=== PATIENT | female | born 1985 | race Caucasian/White ===

== ENCOUNTER 2017-06-07 08:35 | Emergency (ER) | payer MEDICAID ==
[2017-06-07 08:43] VITALS: BP 122/78
[2017-06-07] MEDS ORDERED: predniSONE 20 MG Tab PO ONE (09:04)
[2017-06-07] MEDS ORDERED: Loratadine 10 MG Tab PO ONE (09:04)
--- NOTE | 2017-06-07 09:08 | EDM.PDOC ---
ED HPI GENERAL MEDICAL PROBLEM - General Chief Complaint: Allergic Reaction Stated Complaint: REACTION TO MEDICATION Time Seen by Provider: 06/07/17 08:44 Source of Information: Reports: Patient, RN Notes Reviewed - History of Present Illness INITIAL COMMENTS - FREE TEXT/NARRATIVE: 31-year-old female comes in with facial and neck rash, rash left hand and infected-looking lesion right hand. has had the right hand redness and swelling for awhile but worsening the last 2 or 3 days. facial and neck rash just started a day or 2 ago. no fever or chills. no drainage from hand. 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: Psychiatric History: Reports: Anxiety - Infectious Disease History Infectious Disease History: Reports: MRSA - Past Surgical History GI Surgical History: Reports: Other (See Below) Musculoskeletal Surgical History: Reports: Other (See Below) Social & Family History - Family History Family Medical History: Noncontributory Dermatologic: Reports: Other (See Below) Other Dermatologic Family History: Leisions - Tobacco Use Smoking Status *Q: Never Smoker Years of Tobacco use: 1 Packs/Tins Daily: 0.1 - Caffeine Use Caffeine Use: Reports: Coffee - Recreational Drug Use Recreational Drug Use: No Drug Use in Last 12 Months: Yes Recreational Drug Type: Reports: Heroin Recreational Drug Use Frequency: Daily Recreational Drug Last Use: 02/06/16 ED ROS ALLERGIC REACTION - Review of Systems Review Of Systems: See Below Constitutional: Denies: Fever, Chills HEENT: Denies: Throat Pain Respiratory: Reports: No Symptoms Cardiovascular: Denies: Chest Pain GI/Abdominal: Denies: Abdominal Pain, Nausea, Vomiting Musculoskeletal: Denies: Joint Pain Skin: Reports: Rash, Erythema (dorsum of R hand) Neurological: Reports: No Symptoms ED EXAM GENERAL NO PERIP PULSE - Physical Exam Exam: See Below General Appearance: Alert, No Apparent Distress Eye Exam: Bilateral Eye: PERRL Throat/Mouth: Normal Inspection, Normal Oropharynx Head: No: Facial Swelling Neck: Supple, Full Range of Motion Respiratory/Chest: No Respiratory Distress, Lungs Clear, Normal Breath Sounds Cardiovascular: Regular Rate, Rhythm Back Exam: No: CVA Tenderness (L), CVA Tenderness (R) Extremities: Redness (dorsum of R hand, localized swelling, not fluctuant, no drainage). No: Joint Swelling Neurological: Alert, Oriented, No Motor/Sensory Deficits Skin Exam: Rash (areas of mild nonspecific rash face and neck) Course - Vital Signs Last Recorded V/S: Last Vital Signs Temp 98.3 F 06/07/17 08:39 Pulse 74 06/07/17 08:39 Resp 16 06/07/17 08:39 BP 122/78 06/07/17 08:39 Pulse Ox 100 06/07/17 08:39 - Orders/Labs/Meds Meds: Medications Discontinued Medications Generic Name Dose Route Start Last Admin Trade Name Freq PRN Reason Stop Dose Admin Loratadine 10 mg 06/07/17 09:04 06/07/17 09:14 Claritin PO 06/07/17 09:05 10 mg ONETIME ONE Administration Prednisone 40 mg 06/07/17 09:04 06/07/17 09:14 Prednisone PO 06/07/17 09:05 40 mg ONETIME ONE Administration Departure - Departure Time of Disposition: 09:04 Disposition: Home, Self-Care 01 Condition: Fair Clinical Impression: Rash due to allergy Cellulitis Qualifiers: Site of cellulitis: extremity Site of cellulitis of extremity: upper extremity Laterality: right Qualified Code(s): L03.113 - Cellulitis of right upper limb - Discharge Information Prescriptions: Doxycycline [Vibramycin] 100 mg PO Q12HR #20 cap Prednisone [IMW: predniSONE] 40 mg PO WITHBREAKFAST #4 tab Instructions: Cellulitis, Adult, Rash Referrals: PCP,None [Primary Care Provider] - Forms: ED Department Discharge Additional Instructions: prednisone 40 mg every morning for the next 4 days, you've been given the initial dose here in the ED. That will be your dosage for today. Doxycycline 100 mg twice daily for 10 days until gone, mg daily rash and itchiness, you have also been given that while here in the ED this morning. follow-up clinic if symptoms not resolving over the next 3-5 days, return to ED as needed if symptoms worsening in any way
== END 2017-06-07 09:15 | disposition home or self-care (01) ==
LOC: JD.ED 08:35
DX: L03.113 Cellulitis of right upper limb (principal); F41.9 Anxiety disorder, unspecified; Z79.899 Other long term (current) drug therapy
CPT/HCPCS: 99283; A9270

== ENCOUNTER 2017-12-26 20:32 | Emergency (ER) | payer BC ==
[2017-12-26 20:49] VITALS: BP 151/81
[2017-12-26] MEDS ORDERED: Ondansetron 4 MG/2 ML SDV IVPUSH ONE (22:07)
[2017-12-26] MEDS ORDERED: HYDROmorphone 0.5 MG/0.5 ML SYRINGE IVPUSH ONE (22:08)
--- NOTE | 2017-12-26 22:11 | EDM.PDOC ---
ED HPI GENERAL MEDICAL PROBLEM - General Chief Complaint: Back Pain or Injury Stated Complaint: BACK PAIN Time Seen by Provider: 12/26/17 21:50 Source of Information: Reports: Patient History Limitations: Reports: No Limitations - History of Present Illness INITIAL COMMENTS - FREE TEXT/NARRATIVE: The patient states that she developed minimal right flank pain this afternoon, which has progressively gotten worse over the course of the day. She states that the pain is shocky. It is constant, but worse if she moves. No urinary symptoms, such as dysuria or urinary frequency. The patient has not attempted any home remedies or treatments. No prior similar symptoms. The patient does not have a PCP. 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 Musculoskeletal History: Reports: Osteoarthritis Psychiatric History: Reports: Anxiety (untreated), Depression (untreated) Endocrine/Metabolic History: Reports: Obesity/BMI 30+ - Infectious Disease History Infectious Disease History: Reports: MRSA - Past Surgical History HEENT Surgical History: Reports: Oral Surgery ([place] teeth extraction) GI Surgical History: Reports: Other (See Below) Social & Family History - Family History Family Medical History: Noncontributory Dermatologic: Reports: Other (See Below) Other Dermatologic Family History: Leisions - Tobacco Use Smoking Status *Q: Former Smoker Years of Tobacco use: 19 Packs/Tins Daily: 0.5 Month/Year Tobacco Last Used: Quit Sep 2017 - Caffeine Use Caffeine Use: Reports: None - Alcohol Use Alcohol Use History: No - Recreational Drug Use Recreational Drug Use: Yes Drug Use in Last 12 Months: No Recreational Drug Type: Reports: Heroin Recreational Drug Use Frequency: Daily Recreational Drug Last Use: 02/06/16 - Living Situation & Occupation Living situation: Reports: , with Spouse Occupation: Unemployed ED ROS GENERAL - Review of Systems Review Of Systems: ROS reveals no pertinent complaints other than HPI. ED EXAM, GENERAL - Physical Exam Exam: See Below Exam Limited By: No Limitations General Appearance: Alert, WD/WN, No Apparent Distress Eye Exam: Bilateral Eye: Normal Inspection Ears: Normal External Exam, Hearing Grossly Normal Nose: Normal Inspection, No Blood Throat/Mouth: Normal Inspection, Normal Lips, Normal Voice, No Airway Compromise Head: Atraumatic, Normocephalic Neck: Normal Inspection, Full Range of Motion Respiratory/Chest: No Respiratory Distress, Lungs Clear, Normal Breath Sounds, No Accessory Muscle Use Cardiovascular: Normal Peripheral Pulses, Regular Rate, Rhythm, No Gallop, No JVD, No Murmur, No Rub Peripheral Pulses: 4+: Radial (L), Radial (R) GI/Abdominal: Normal Bowel Sounds, Soft, Non-Tender, No Organomegaly, No Distention, No Abnormal Bruit, No Mass, Other (Obese) (Female) Exam: Deferred Rectal (Female) Exam: Deferred Back Exam: Normal Inspection, Full Range of Motion, CVA Tenderness (R) ( Nontender to direct palpation). No: CVA Tenderness (L) Extremities: Normal Inspection, Normal Range of Motion, No Pedal Edema, Normal Capillary Refill Neurological: Alert, Oriented, Normal Cognition, No Motor/Sensory Deficits Psychiatric: Normal Affect Skin Exam: Warm, Dry, Intact, Normal Color, No Rash Course - Vital Signs Last Recorded V/S: Last Vital Signs Temp 36.4 C 12/26/17 20:46 Pulse 80 12/26/17 20:46 Resp 18 12/26/17 20:46 BP 151/81 H 12/26/17 20:46 Pulse Ox 100 12/26/17 20:46 - Orders/Labs/Meds Labs: Laboratory Tests 12/26/17 12/26/17 Range/Units 23:17 23:17 Urine Color Yellow (Yellow) Urine Appearance Clear (Clear) Urine pH 6.5 (5.0-8.0) Ur Specific [place] 1.020 (1.005-1.030) Urine Protein Negative (Negative) Urine Glucose (UA) Negative (Negative) Urine Ketones Negative (Negative) Urine Occult Blood Negative (Negative) Urine Nitrite Negative (Negative) Urine Bilirubin Negative (Negative) Urine Urobilinogen 0.2 (0.2-1.0) Ur Leukocyte Esterase Negative (Negative) Urine RBC Not seen (0-5) /hpf Urine WBC Not seen (0-5) /hpf Ur Epithelial Cells 0-5 (0-5) /hpf Urine Bacteria Not seen (FEW) /hpf Urine Mucus Not seen (FEW) /hpf Urine HCG, Qual Negative (NEGATIVE) Meds: Medications Discontinued Medications Generic Name Dose Route Start Last Admin Trade Name Aakash PRN Reason Stop Dose Admin Hydromorphone HCl 0.5 mg 12/26/17 22:08 12/26/17 22:45 Dilaudid IVPUSH 12/26/17 22:09 0.5 mg ONETIME ONE Administration Sodium Chloride 1,000 mls @ 150 mls/hr 12/26/17 22:15 12/26/17 22:43 Normal Saline IV 150 mls/hr ASDIRECTED YAA Administration Ibuprofen 600 mg 12/27/17 00:17 12/27/17 00:23 Motrin PO 12/27/17 00:18 600 mg ONETIME ONE Administration Ondansetron HCl 4 mg 12/26/17 22:07 12/26/17 22:43 Zofran IVPUSH 12/26/17 22:08 4 mg ONETIME ONE Administration Orphenadrine Citrate 100 mg 12/27/17 00:10 12/27/17 00:23 Norflex PO 12/27/17 00:11 100 mg ONETIME STA Administration - Re-Assessments/Exams Free Text/Narrative Re-Assessment/Exam: 12/26/17 22:10 While the patient may be suffering from a muscle spasm, she is not tender to palpation to her right flank. I am more concerned about a ureterolith, therefore I have requested a urinalysis. I will also check a urine test. I have ordered IV fluids, Dilaudid, and Zofran, in the meantime. 12/27/17 00:18 Test results discussed with the patient and her . The patient's urinalysis is completely normal, without suggestion of a UTI, and with no blood or pyuria to suggest a ureterolith. It appears that the patient is suffering from a muscle spasm. I have ordered Norflex and ibuprofen. I'm recommending that she stay active, and I will refer her to Dr. Rader, should her symptoms not improve. Departure - Departure Time of Disposition: 00:19 Disposition: Home, Self-Care 01 Condition: Good Clinical Impression: Muscle spasm of back - Discharge Information Prescriptions: Orphenadrine [Norflex] 1 tab PO Q12H PRN #14 tab.er PRN Reason: Muscle Spasm Instructions: Muscle Cramps and Spasms, [id number] Referrals: Janet Kumar RN [Primary Care Provider] - Kortney Rader MD [Physician] - Forms: ED Department Discharge Additional Instructions: You were seen in the emergency room for right flank pain. Workup in the ER included a urinalysis and a urine test, both of which were normal. You do not have a urinary tract infection, and with no blood in your urine, a kidney stone is highly unlikely. The cause of your pain is not entirely certain, but is MOST LIKELY due to a muscle spasm. You have been started on the muscle relaxant Norflex. A prescription for this has been sent to the [facility], [address] [place] [address]. Take one tablet every 12 hours, as prescribed. We also recommend that you take [id number] ibuprofen, 2-3 tablets (400- 600 mg) every 8 hours, with food. It is important that you stay active. Swimming is best, but walking is also good. If your symptoms fail to improve over the next few days, please follow-up with Dr. Kortney Rader in the clinic. If any other problems, please do not hesitate to return to the ER.
[2017-12-26] MEDS ORDERED: Sodium Chloride 0.9% 1,000 ML IV SCH (22:15)
[2017-12-27] MEDS ORDERED: Orphenadrine 100 MG Tab.ER PO STA (00:10)
[2017-12-27] MEDS ORDERED: Ibuprofen 600 MG Tab PO ONE (00:17)
== END 2017-12-27 00:42 | disposition home or self-care (01) ==
LOC: JD.ED 20:32
DX: M62.830 Muscle spasm of back (principal); E66.9 Obesity, unspecified; Z98.890 Other specified postprocedural states; Z87.891 Personal history of nicotine dependence; Z79.899 Other long term (current) drug therapy; Z87.442 Personal history of urinary calculi; Z68.34 Body mass index [BMI] 34.0-34.9, adult
CPT/HCPCS: 81001; 81025; 96361; 96374; 96375; 99283; A9270; J1170; J2405; J7040; 99284

== ENCOUNTER 2018-03-23 20:32 | Emergency (ER) | payer BC ==
[2018-03-23 20:42] VITALS: BP 125/87
--- NOTE | 2018-03-23 21:02 | EDM.PDOC ---
ED HPI GENERAL MEDICAL PROBLEM - General Chief Complaint: Respiratory Problem Stated Complaint: COUGH/CHEST HURTS/MUCUS Time Seen by Provider: 03/23/18 20:46 Source of Information: Reports: Patient History Limitations: Reports: No Limitations - History of Present Illness INITIAL COMMENTS - FREE TEXT/NARRATIVE: The patient states that she developed nausea, subjective fever, generalized body aches, sore throat, insomnia, cough, and fatigue a few weeks ago. The symptoms improved, however, she then developed rhinorrhea, then, one week ago, green mucus when she coughed. She states that it hurts when she coughs, today. She has not sought medical attention for any of these symptoms, until tonight. She states that she is here now, because she had a night off. The patient states that she took ibuprofen today, but that that is the only medication that she has taken for any of her symptoms over the past few weeks. Here in the ED, the patient is hemodynamically stable, afebrile, saturating 99% on room air. The patient's PCP is Cliff Poole. 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 Musculoskeletal History: Reports: Osteoarthritis Psychiatric History: Reports: Anxiety, Depression Endocrine/Metabolic History: Reports: Obesity/BMI 30+ - Infectious Disease History Infectious Disease History: Reports: MRSA - Past Surgical History HEENT Surgical History: Reports: Oral Surgery ([place] teeth extraction) Social & Family History - Family History Family Medical History: Noncontributory Dermatologic: Reports: Other (See Below) Other Dermatologic Family History: Leisions - Tobacco Use Smoking Status *Q: Never Smoker - Caffeine Use Caffeine Use: Reports: None - Living Situation & Occupation Living situation: Reports: , with Spouse Occupation: Unemployed ED ROS GENERAL - Review of Systems Review Of Systems: ROS reveals no pertinent complaints other than HPI. ED EXAM, GENERAL - Physical Exam Exam: See Below Exam Limited By: No Limitations General Appearance: Alert, WD/WN, No Apparent Distress Eye Exam: Bilateral Eye: EOMI, Normal Inspection Ears: Normal External Exam, Normal Canal, Hearing Grossly Normal, Normal TMs Nose: Normal Inspection, Normal Mucosa, No Blood Throat/Mouth: Normal Inspection, Normal Lips, Normal Teeth, Normal Gums, Normal Oropharynx, Normal Voice, No Airway Compromise Head: Atraumatic, Normocephalic Neck: Normal Inspection, Supple, Non-Tender, Full Range of Motion. No: Lymphadenopathy (L), Lymphadenopathy (R) Respiratory/Chest: No Respiratory Distress, Lungs Clear, Normal Breath Sounds, No Accessory Muscle Use. No: Decreased Breath Sounds, Crackles, Rhonchi, Wheezing, Prolonged Expiration Cardiovascular: Normal Peripheral Pulses, Regular Rate, Rhythm, No Edema, No Gallop, No JVD, No Murmur, No Rub Peripheral Pulses: 4+: Radial (L), Radial (R) GI/Abdominal: Normal Bowel Sounds, Soft, Non-Tender, No Organomegaly, No Distention, No Abnormal Bruit, No Mass (Female) Exam: Deferred Rectal (Female) Exam: Deferred Back Exam: Normal Inspection, Full Range of Motion, NT Extremities: Normal Inspection, Normal Range of Motion, No Pedal Edema, Normal Capillary Refill Neurological: Alert, Oriented, Normal Cognition, No Motor/Sensory Deficits Psychiatric: Normal Affect Skin Exam: Warm, Dry, Intact, Normal Color, No Rash Course - Vital Signs Last Recorded V/S: Last Vital Signs Temp 36.9 C 03/23/18 20:39 Pulse 57 L 03/23/18 20:39 Resp 18 03/23/18 20:39 BP 125/87 03/23/18 20:39 Pulse Ox 99 03/23/18 20:39 - Re-Assessments/Exams Free Text/Narrative Re-Assessment/Exam: 03/23/18 20:58 The patient has a viral URI. Departure - Departure Time of Disposition: 20:58 Disposition: Home, Self-Care 01 Condition: Good Clinical Impression: Viral URI with cough - Discharge Information *PRESCRIPTION DRUG MONITORING PROGRAM REVIEWED*: Not Applicable *COPY OF PRESCRIPTION DRUG MONITORING REPORT IN PATIENT DISHA: Not Applicable Instructions: Viral Respiratory Infection, [id number] Referrals: PCP,Zoya [Primary Care Provider] - Cliff Poole PA-C [Physician Salesperson Sheet Music] - Forms: ED Department Discharge Additional Instructions: You were seen in the emergency room for nasal and sinus congestion, a cough productive of green sputum, and chest discomfort when you cough. Your physical examination was entirely normal. Your lungs were entirely clear, and you were saturating 99% on room air. The likelihood of your having pneumonia is extremely low. Based on your history and physical is emanation, you are MOST LIKELY suffering from a viral URI, also known as a common cold. Unfortunately, there are no medicines to get rid of a viral URI - it will have to run its course. As discussed, we do not recommend that you take any [id number] cough or cold remedies, because they do not help, but do have side effects. Follow-up with your PCP, Cliff Poole, as needed. If any other problems, please do not hesitate to return to the ER.
== END 2018-03-23 21:10 | disposition home or self-care (01) ==
LOC: JD.ED 20:32
DX: J06.9 Acute upper respiratory infection, unspecified (principal); Z79.899 Other long term (current) drug therapy
CPT/HCPCS: 99283

== ENCOUNTER 2018-03-29 15:01 | Emergency (ER) | payer BC ==
[2018-03-29 15:16] VITALS: BP 134/92
--- NOTE | 2018-03-29 15:44 | EDM.PDOC ---
ED HPI GENERAL MEDICAL PROBLEM - General Chief Complaint: General Stated Complaint: MOUTH PAIN Time Seen by Provider: 03/29/18 15:25 Source of Information: Reports: Patient History Limitations: Reports: No Limitations - History of Present Illness INITIAL COMMENTS - FREE TEXT/NARRATIVE: 32-year-old female presents for evaluation and treatment of dental pain. Patient reports that dental pain has been going on for the last 2 weeks. About 2 weeks ago she saw dentist and had a temporary filling done to her left lower teeth. She states that her entire mouth has a throbbing sensation. She is not able to take Tylenol. States she is unable to take Motrin as she has "5 bleeding ulcers ". She is not currently on any Carafate, proton pump inhibitors , or other medications to protect her stomach at this time. She was previously seeing Dr. Graham, dentist in [facility]. She contacted him to let them know about her dental pain and she states that he is "not helping her ". She is scheduled to see an endontist at the end of April. She denies any fevers, chills or vomiting. She states that she is nauseated and gets shaky but she attributes this to the pain and anxiety. She did not have any x-rays done when she saw the dentist last. Reports her only medications she is currently on Celexa. Reports she is otherwise healthy with no known medical conditions. Primary care provider is Cliff Poole. Duration: Week(s): (2) Tooth/Teeth Pain Score (Numeric/FACES): 9 - Related Data Allergies Allergy/AdvReac Type Severity Reaction Status Date / Time No Known Allergies Allergy Verified 03/29/18 15:12 Home Meds: Home Meds Amoxicillin/Potassium Clav [Augmentin 500-125 Tablet] 1 each PO BID #20 tablet 03/29/18 [Rx] Chlorhexidine Gluconate 480 ml MM BID #1 mouthwash 03/29/18 [Rx] Citalopram [Citalopram HBr] 20 mg PO DAILY 03/29/18 [History] Naproxen 500 mg PO BID PRN #20 tablet 03/29/18 [Rx] Past Medical History HEENT History: Reports: Impaired Vision Other HEENT History: wears glasses Gastrointestinal History: Reports: PUD Genitourinary History: Reports: Renal Calculus 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: Musculoskeletal History: Reports: Osteoarthritis Psychiatric History: Reports: Anxiety, Depression Endocrine/Metabolic History: Reports: Obesity/BMI 30+ - Infectious Disease History Infectious Disease History: Reports: MRSA - Past Surgical History HEENT Surgical History: Reports: Oral Surgery Social & Family History - Family History Family Medical History: Noncontributory Dermatologic: Reports: Other (See Below) Other Dermatologic Family History: Leisions - Tobacco Use Smoking Status *Q: Never Smoker - Caffeine Use Caffeine Use: Reports: None - Recreational Drug Use Recreational Drug Use: No - Living Situation & Occupation Living situation: Reports: , with Spouse Occupation: Unemployed ED ROS GENERAL - Review of Systems Review Of Systems: See Below Constitutional: Denies: Fever, Chills HEENT: Reports: Dental Pain (entire mouth) GI/Abdominal: Reports: Nausea. Denies: Vomiting Psychiatric: Reports: Anxiety ED EXAM, GENERAL - Physical Exam Exam: See Below Exam Limited By: No Limitations General Appearance: Alert, WD/WN, No Apparent Distress Eye Exam: Bilateral Eye: Normal Inspection Ears: Normal External Exam, Normal Canal, Hearing Grossly Normal, Normal TMs Nose: Normal Inspection Throat/Mouth: Normal Inspection, Normal Lips, Normal Voice, No Airway Compromise , Other (gingivitis present; #30 broken, #18 dep [place] with temporary filling) Neck: Normal Inspection. No: Lymphadenopathy (L), Lymphadenopathy (R) Respiratory/Chest: No Respiratory Distress, Lungs Clear, Normal Breath Sounds Cardiovascular: Normal Peripheral Pulses, Regular Rate, Rhythm, No Murmur Neurological: Alert, Oriented, Normal Cognition Psychiatric: Normal Affect, Normal Mood Skin Exam: Warm, Dry, Normal Color Course - Vital Signs Last Recorded V/S: Last Vital Signs Temp 98.5 F 03/29/18 15:13 Pulse 96 03/29/18 15:13 Resp 15 03/29/18 15:13 BP 134/92 H 03/29/18 15:13 Pulse Ox 98 03/29/18 15:13 - Orders/Labs/Meds Meds: Medications Discontinued Medications Generic Name Dose Route Start Last Admin Trade Name Freq PRN Reason Stop Dose Admin Bupivacaine HCl 10 ml 03/29/18 16:37 03/29/18 16:46 Sensorcaine-Mpf 0.5% INJECT 03/29/18 16:38 10 ml ONETIME ONE Administration - Re-Assessments/Exams Free Text/Narrative Re-Assessment/Exam: 03/29/18 15:40 Patient requested pain medication for her teeth. She was searched on the [place] prescription drug registry. She most recently received a prescription for oxycodone 5 mg tabs #60 on 03-21-18. She should have 7 days of oxycodone left of her prescription. She told me she has not taken any oxycodone since last week. 03/29/18 16:01 Patient became upset with the treatment plan. I went and spoke to her. I informed her that the [employer] recommends naproxen. If she is unable to take that she can take Tylenol, which she also says she cannot take. I then informed her that her drug registry showed that she had just received 60 oxycodone on March 21 and this was a 15 day supply. She informed me that she cannot take that for her dental pain. I informed her that I cannot prescribe her any more narcotics when she has a prescription for narcotics at this time. Patient became upset and refused her discharge information which had her he prescriptions information for Augmentin and Peridex. I highly suspect drug- seeking behavior. 03/29/18 17:32 Patient returned and demanded to be seen by a Doctor.. Dr. Alvarado seen the patient and would would also not give her any narcotics. He did give her a dental block. 2 mL of 0.5% Marcaine to the inferior alveolar area. Departure - Departure Time of Disposition: 15:39 Disposition: Home, Self-Care 01 Condition: Fair Clinical Impression: Infected dental carries, Drug-seeking behavior Broken teeth Qualifiers: Encounter type: initial encounter - Discharge Information *PRESCRIPTION DRUG MONITORING PROGRAM REVIEWED*: Yes *COPY OF PRESCRIPTION DRUG MONITORING REPORT IN PATIENT DISHA: Yes Prescriptions: Amoxicillin/Potassium Clav [Augmentin 500-125 Tablet] 1 each PO BID #20 tablet Chlorhexidine Gluconate 480 ml MM BID #1 mouthwash Naproxen 500 mg PO BID PRN #20 tablet PRN Reason: Pain Instructions: Tooth Injuries Referrals: Cliff Poole PA-C [Primary Care Provider] - Forms: ED Department Discharge Additional Instructions: take the naproxen bid prn pain. May take OTC tylenol as needed for additional pain relief. take the augmentin 1 tab PO bid x 10 days. take with food. Recommend a probiotic or yogurt to reduce side effects of upset stomach, nausea, and diarrhea. Recommend contacting your dentist for further pain management. Recommend seeing your endontist as soon as possible for further management. Recommend using the Peridex mouthwash 15 mls swish and spit twice a day. Swish for about 30 seconds. Please return to ER if your symptoms change or worsen.
[2018-03-29] MEDS ORDERED: Bupivacaine 0.5% 10 ML SDV INJECT ONE (16:37)
== END 2018-03-29 16:48 | disposition home or self-care (01) ==
LOC: JD.ED 15:01
DX: K03.81 Cracked tooth (principal); K02.9 Dental caries, unspecified; Z76.5 Malingerer [conscious simulation]; Z79.899 Other long term (current) drug therapy; F41.9 Anxiety disorder, unspecified; F32.9 Major depressive disorder, single episode, unspecified
CPT/HCPCS: 64400; 99283; J3490

== ENCOUNTER 2018-05-15 18:46 | Emergency (ER) | payer BC ==
[2018-05-15 19:03] VITALS: BP 123/76
[2018-05-15] MEDS ORDERED: Ketorolac 60 MG/2 ML SDV IM ONE (19:50)
--- NOTE | 2018-05-15 20:00 | EDM.PDOC ---
ED HPI GENERAL MEDICAL PROBLEM - General Chief Complaint: General Stated Complaint: POSS TOOTH INFECTION Time Seen by Provider: 05/15/18 19:30 Source of Information: Reports: Patient, Old Records History Limitations: Reports: No Limitations - History of Present Illness INITIAL COMMENTS - FREE TEXT/NARRATIVE: 32-year-old female presents for evaluation and treatment of dental pain. Patient states this is been going on for several months. She has been seeing Dr. Graham, dentist in [place], she last saw him on . Reports she had several teeth removed and one of her teeth recapped. She is reporting pain to entire mouth. Has been going on for several days. She was recently on antibiotics, amoxicillin, but finished about 4 or 5 days ago. She describes the pain as a throbbing sensation states her entire mouth is involved with the right lower right side seems to be the most effected. Reports trouble sleeping due to the pain. She also reports associated symptoms of nausea. No fevers, vomiting, facial swelling, ear pain, or any bad taste in her mouth. Patient reports she has appreciated several "white spots" to the right lower gums. 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: Musculoskeletal History: Reports: Osteoarthritis Psychiatric History: Reports: Anxiety, Depression Endocrine/Metabolic History: Reports: Obesity/BMI 30+ - Infectious Disease History Infectious Disease History: Reports: MRSA - Past Surgical History HEENT Surgical History: Reports: Oral Surgery Social & Family History - Family History Family Medical History: Noncontributory Dermatologic: Reports: Other (See Below) Other Dermatologic Family History: Leisions - Tobacco Use Smoking Status *Q: Never Smoker - Caffeine Use Caffeine Use: Reports: None - Recreational Drug Use Recreational Drug Use: No - Living Situation & Occupation Living situation: Reports: , with Spouse Occupation: Unemployed ED ROS GENERAL - Review of Systems Review Of Systems: See Below Constitutional: Denies: Fever HEENT: Reports: Dental Pain (throughout her entire mouth), Other (no facial swelling). Denies: Ear Pain GI/Abdominal: Reports: Nausea. Denies: Vomiting ED EXAM, GENERAL - Physical Exam Exam: See Below Exam Limited By: No Limitations General Appearance: Alert, WD/WN, No Apparent Distress Eye Exam: Bilateral Eye: Normal Inspection Ears: Normal External Exam, Normal Canal, Hearing Grossly Normal, Normal TMs Nose: Normal Inspection Throat/Mouth: Normal Inspection, Normal Lips, Normal Voice, No Airway Compromise , Other (diffuse gingivitis, multiple carries present; #30 capped; #18 absent # 20 absent) Neck: Normal Inspection. No: Lymphadenopathy (L), Lymphadenopathy (R) Respiratory/Chest: No Respiratory Distress, Lungs Clear, Normal Breath Sounds Cardiovascular: Normal Peripheral Pulses, Regular Rate, Rhythm, No Murmur Neurological: Alert, Oriented, Normal Cognition Psychiatric: Normal Affect, Normal Mood Skin Exam: Warm, Dry, Normal Color Course - Vital Signs Last Recorded V/S: Last Vital Signs Temp 97.8 F 05/15/18 19:00 Pulse 83 05/15/18 19:00 Resp BP 123/76 05/15/18 19:00 Pulse Ox 100 05/15/18 19:00 - Orders/Labs/Meds Meds: Medications Discontinued Medications Generic Name Dose Route Start Last Admin Trade Name Aakash PRN Reason Stop Dose Admin Ketorolac Tromethamine 60 mg 05/15/18 19:50 05/15/18 20:29 Toradol IM 05/15/18 19:51 60 mg ONETIME ONE Administration - Re-Assessments/Exams Free Text/Narrative Re-Assessment/Exam: 05/15/18 19:52 Patient searched on the [place] prescription drug registry. She has receive 15 prescriptions for controlled substances from 2 different prescribers within the last year. Most recently she received Percocet 5/325 on 05-13 #5. Prior to that she did receive a prescription for oxycodone 5 mg filled on 05/05 # 60. This is a 15 day supply. Patient did not disclose any of her narcotic medications to us. I did offer her a dental block for her dental pain tonight. Informed her I would be unable to prescribe her any narcotics for pain. Recommend follow-up with her dentist for further pain management of her dental pain. We'll give her and Rx for Toradol by mouth which she requested. I will give her shot of Toradol here in the ED tonight. Discharge instructions as documented. Departure - Departure Time of Disposition: 20:09 Disposition: Home, Self-Care 01 Condition: Fair Clinical Impression: Infected dental carries - Discharge Information *PRESCRIPTION DRUG MONITORING PROGRAM REVIEWED*: Yes *COPY OF PRESCRIPTION DRUG MONITORING REPORT IN PATIENT DISHA: No Prescriptions: Amoxicillin/Clavulanate K [Augmentin 875-125 MG] 1 tab PO BID #20 tab Ketorolac [Toradol] 10 mg PO TID PRN #15 tab PRN Reason: Pain Instructions: Dental Abscess, [id number] Referrals: Cliff Poole PA-C [Primary Care Provider] - Forms: ED Department Discharge Additional Instructions: augmentin 1 tab PO bid x 10 days. Take with food. Recommend yogurt or a probiotic to help reduce side effects of upset stomach, nausea and diarrhea. Toradol 1 tab PO tid prn pain. [place] pharmacy in [facility] is open 1-3pm tomorrow. May take OTC tylenol as needed for additional pain relief. May take up to 4grams of tylenol in one day. Follow-up with a dentist as soon as you are able to. Please return to the ER should your symptoms change or worsen.
== END 2018-05-15 20:31 | disposition home or self-care (01) ==
LOC: JD.ED 18:46
DX: K02.9 Dental caries, unspecified (principal); Z79.899 Other long term (current) drug therapy
CPT/HCPCS: 96372; 99283; J1885

== ENCOUNTER 2019-06-15 16:03 | Emergency (ER) | payer SELFPAY ==
[2019-06-15 16:29] VITALS: BP 129/89; PULSE 80
[2019-06-15] MEDS ORDERED: Sodium Chloride 0.9% 1,000 ML IV ONE (16:51)
[2019-06-15] MEDS ORDERED: Sodium Chloride 0.9% 10 ML Syringe FLUSH PRN (16:51)
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
[2019-06-15] MEDS ORDERED: cefTRIAXone 250 MG, Lidocaine 1% 0.5 ML IM ONE ×2 (19:24)
[2019-06-15] MEDS: Azithromycin 250 MG Tab PO ONE ×2 (19:49→20:13)
[2019-06-15 20:29] LABS: C. TRACHOMATIS BY PCR NOT DETECTED; N. GONORRHOEAE BY PCR NOT DETECTED
[2019-06-15] MEDS ORDERED: ClonazePAM 1 MG Tab PO SCH (21:00)
== END 2019-06-15 20:13 | disposition home or self-care (01) ==
LOC: JD.ED 16:03
DX: N76.0 Acute vaginitis (principal); B96.89 Other specified bacterial agents as the cause of diseases classified elsewhere; N30.01 Acute cystitis with hematuria; F32.9 Major depressive disorder, single episode, unspecified; E66.9 Obesity, unspecified; Z79.899 Other long term (current) drug therapy; Z88.6 Allergy status to analgesic agent; Z88.8 Allergy status to other drugs, medicaments and biological substances; Z87.891 Personal history of nicotine dependence
CPT/HCPCS: 36415; 80053; 80306; 81001; 82175; 85025; 87086; 87088; 87186; 87210; 87491; 87591; 87808; 99284; A9270-GY

== ENCOUNTER 2019-06-30 20:46 | Emergency (ER) | payer SELFPAY ==
[2019-06-30 20:52] VITALS: BP 131/100; PULSE 121
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
--- NOTE | 2019-07-01 08:38 | CT ---
CT cervical spine Technique: Multiple axial sections were obtained from above C1 to the bottom of T1. Reconstructed sagittal and coronal images were reviewed. Comparison: Prior CT cervical spine study of 02/09/19. Findings: Disc space narrowing is noted at C5-6 and C6-7 with anterior osteophytes and small posterior osteophytes. Slight kyphosis is noted. Other disc spaces are preserved. Vertebral body heights are maintained. No bony central or bony neural foraminal stenosis is seen. No fracture is appreciated. No abnormal subluxation is seen. Impression: 1. Degenerative change as noted above. This has slightly progressed from prior study. 2. Nothing acute is appreciated on CT study of the cervical spine. Diagnostic code #2 I agree with preliminary report from [facility], finalized on 07/01/19, 12:25 AM Central Time
--- NOTE | 2019-07-01 09:00 | CT ---
Head CT Technique: Multiple axial sections through the brain were obtained. Intravenous contrast was not utilized. Comparison: Prior head CT study of 02/10/16. Findings: Ventricles along with basal cisterns and sulci over the convexities appear within normal limits for the patient's age. No abnormal parenchymal densities are seen. No evidence of intracranial hemorrhage. No midline shift or mass effect is seen. Bone window settings were reviewed which show the mastoid sinuses to appear clear. Visualized paranasal sinuses show nothing acute. No acute calvarial abnormality is appreciated. Impression: 1. Nothing acute is seen on noncontrast head CT exam. Diagnostic code #1 I agree with preliminary report from [facility], finalized on 07/01/19, 12:20 AM Central Time
== END 2019-07-01 01:45 | disposition home or self-care (01) ==
LOC: JD.ED 20:46
DX: S09.90XA Unspecified injury of head, initial encounter (principal); S16.1XXA Strain of muscle, fascia and tendon at neck level, initial encounter; F41.9 Anxiety disorder, unspecified; F32.9 Major depressive disorder, single episode, unspecified; E66.9 Obesity, unspecified; Z68.29 Body mass index [BMI] 29.0-29.9, adult; Z88.8 Allergy status to other drugs, medicaments and biological substances; Z79.899 Other long term (current) drug therapy; Z87.890 Personal history of sex reassignment; Y04.0XXA Assault by unarmed brawl or fight, initial encounter
CPT/HCPCS: 70450; 70450-26; 72125; 72125-26; 99284-25

== ENCOUNTER 2019-07-01 07:07 | Emergency (ER) | payer SELFPAY ==
[2019-07-01 07:31] VITALS: BP 124/78; PULSE 74
[2019-07-01] MEDS ORDERED: Ketorolac 60 MG/2 ML SDV IM ONE (07:50)
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
[2019-07-01] MEDS ORDERED: Cyclobenzaprine 10 MG Tab PO ONE (08:29)
[2019-07-01] MEDS ORDERED: Acetaminophen/HYDROcodone 325-5 MG Tab PO ONE (08:30)
== END 2019-07-01 09:27 | disposition home or self-care (01) ==
LOC: JD.ED 07:07
DX: S16.1XXA Strain of muscle, fascia and tendon at neck level, initial encounter (principal); E66.9 Obesity, unspecified; Z68.29 Body mass index [BMI] 29.0-29.9, adult; F32.9 Major depressive disorder, single episode, unspecified; Z88.6 Allergy status to analgesic agent; Z88.8 Allergy status to other drugs, medicaments and biological substances; Z79.899 Other long term (current) drug therapy; W01.198A Fall on same level from slipping, tripping and stumbling with subsequent striking against other object, initial encounter
CPT/HCPCS: 96372; 99283; A9270; J1885

== ENCOUNTER 2020-05-10 11:57 | Emergency (ER) | payer SELFPAY ==
[2020-05-10 12:10] VITALS: BP 142/85; PULSE 121
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
== END 2020-05-10 13:05 | disposition home or self-care (01) ==
LOC: JD.ED 11:57
DX: Z02.89 Encounter for other administrative examinations (principal); F41.9 Anxiety disorder, unspecified; F32.9 Major depressive disorder, single episode, unspecified; E66.9 Obesity, unspecified; Z88.6 Allergy status to analgesic agent; Z79.899 Other long term (current) drug therapy
CPT/HCPCS: 99283

== ENCOUNTER 2020-09-12 11:02 | Emergency (ER) | payer MEDICAID ==
[2020-09-12 11:20] VITALS: BP 131/85; PULSE 90
--- NOTE | 2020-09-12 11:47 | EDM.PDOC ---
ED HPI GENERAL MEDICAL PROBLEM - General Chief Complaint: Skin Complaint Stated Complaint: SORES ALL OVER BODY Time Seen by Provider: 09/12/20 11:14 Source of Information: Reports: Patient, RN Notes Reviewed History Limitations: Reports: No Limitations - History of Present Illness INITIAL COMMENTS - FREE TEXT/NARRATIVE: Patient is a 34-year-old female who presents to the ED for the evaluation of her body source. She notes she does have a history of MRSA however she thinks these sores are not due to MRSA at this time. She notes that her regular MRSA lesions are different. There are lesions on her feet, ankles, shins, upper thighs in her groin folds, on her arms, and even some pustules on her face. There is a area on her right ankle, that does appear to have a surrounding cellulitis. Patient notes that these are all very painful as well. She is not taking anything at home for pain management however. She states that these started about 2 days ago however the various stages of healing would suggest this is been going on longer than that. She has been treated multiple times in the past for her lesions. She does note that she seen a director career however nothing really got done about it. She thinks she has some sort of folliculitis type thing going on as she noted there was some hair involvement at some of the sites. She denies any sick-like symptoms, fever/chills, cough/shortness of breath, nausea/vomiting/diarrhea. Patient notes that she was not picking at these lesions, she has been using some foot soaks to help heal the lesions on her feet. She does note that if she happens to pick at the lesions, they do not grow, they stay the same size. 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: 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, 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 History: Musculoskeletal History: Reports: Neck Pain, Chronic, Osteoarthritis Other Musculoskeletal History: states she has a 'broken neck and back' Psychiatric History: Reports: Addiction, Anxiety, Depression Endocrine/Metabolic History: Reports: Obesity/BMI 30+ Dermatologic History: Reports: Cellulitis, Other (See Below) Other Dermatologic History: MRSA - Infectious Disease History Infectious Disease History: Reports: MRSA - Past Surgical History HEENT Surgical History: Reports: Oral Surgery GI Surgical History: Reports: Other (See Below) Other GI Surgeries/Procedures: liver biopsy Musculoskeletal Surgical History: Reports: Other (See Below) Other Musculoskeletal Surgeries/Procedures:: Broken tailbone Social & Family History - Family History Family Medical History: No Pertinent Family History Dermatologic: Reports: Other (See Below) Other Dermatologic Family History: Leisions - Caffeine Use Caffeine Use: Reports: Coffee - Recreational Drug Use Recreational Drug Use: Yes Drug Use in Last 12 Months: No Recreational Drug Type: Reports: Heroin (history of) - Living Situation & Occupation Living situation: Reports: (), Other (with a friend and her boyfriend) Occupation: Employed ([employer]) ED ROS GENERAL - Review of Systems Review Of Systems: Comprehensive ROS is negative, except as noted in HPI. ED EXAM, SKIN/RASH Exam: See Below Exam Limited By: No Limitations General Appearance: Alert, WD/WN, No Apparent Distress Respiratory/Chest: No Respiratory Distress, Lungs Clear, Normal Breath Sounds, No Accessory Muscle Use, Chest Non-Tender Cardiovascular: Normal Peripheral Pulses, Regular Rate, Rhythm, No Edema Peripheral Pulses: 2+: Radial (L), Radial (R) Extremities: Normal Capillary Refill Neurological: Alert, Oriented, Normal Cognition, No Motor/Sensory Deficits Psychiatric: Normal Affect, Normal Mood Skin: Warm, Dry, Erythema (noted around the lesion of the right medial ankle), Other (scattered pustules over her entire body corpitus) Associated features: Tenderness Course - Vital Signs Last Recorded V/S: Last Vital Signs Temp 98.0 F 09/12/20 11:14 Pulse 90 09/12/20 11:14 Resp 12 09/12/20 11:14 BP 131/85 09/12/20 11:14 Pulse Ox 98 09/12/20 11:14 - Re-Assessments/Exams Free Text/Narrative Re-Assessment/Exam: 09/12/20 11:52 Patient presents to the ED for her all over body pustules. At this time we will place her on antibiotics, due to her history of MRSA, she will be placed on doxycycline. 1 mg twice daily x14 days. I will direct her to follow-up with her regular care provider at the end of the course of antibiotics to have her lesions looked at again. Departure - Departure Time of Disposition: 11:56 Disposition: Home, Self-Care 01 Condition: Good Clinical Impression: Pustules determined by examination, Cellulitis of ankle - Discharge Information *PRESCRIPTION DRUG MONITORING PROGRAM REVIEWED*: No *COPY OF PRESCRIPTION DRUG MONITORING REPORT IN PATIENT DISHA: No Prescriptions: Doxycycline [Vibramycin] 100 mg PO BID 14 Days #28 tab Instructions: Cellulitis, Adult, [id number] Referrals: Julia Gonzales NP [Primary Care Provider] - Additional Instructions: You were seen in the ER today for your skin lesions. You have been placed on an antibiotic called doxycycline, dosing will be 100 mg twice daily for the next 14 days. You will need to go to the [facility] pharmacy located near [facility] to pick this up and start taking as prescribed. You can start your dosing as soon as you get the medication today, and take your night time med as well. Please note that antibiotics can take up to 48 hours to start working. If you should not notice a change in any of the lesions, within 72 to 96 hours I recommend you seek care for re-evaluation, as you might need a change in your antibiotics. As with any antibiotic, it can cause some diarrhea at times I highly recommend you start taking a probiotic in your diet, to help prevent this. You may use Tylenol for pain management, please keep utilizing hot packs to the area, to bring the infection to the surface and allow the pustules to drain. I would recommend you set up with a regular care provider if you have not already done so, call our clinic [phone], or the [facility] at [phone] and get a family practice provider for ongoing health management. Highly recommend you follow-up with a doctor after you have taken the course of antibiotics to make sure that everything is getting better as expected. Please return to the ER at any time if your symptoms change or worsen. Sepsis Event Note (ED) - Evaluation Sepsis Screening Result: No Definite Risk - Focused Exam Vital Signs: Vital Signs Temp Pulse Resp BP Pulse Ox 09/12/20 11:14 98.0 F 90 12 131/85 98
== END 2020-09-12 12:10 | disposition home or self-care (01) ==
LOC: JD.ED 11:02
DX: L03.115 Cellulitis of right lower limb (principal); L08.9 Local infection of the skin and subcutaneous tissue, unspecified; E66.9 Obesity, unspecified; Z68.31 Body mass index [BMI] 31.0-31.9, adult; Z88.8 Allergy status to other drugs, medicaments and biological substances
CPT/HCPCS: 99283